=== PATIENT | female | born 1965 | race Caucasian/White ===

== ENCOUNTER 2021-09-04 14:09 | Emergency (ER) | payer SELFPAY ==
[~2021-09-04] VITALS: Ht 152.4 cm; Wt 61.2 kg
[2021-09-04 14:15] VITALS: BP 182/98
[2021-09-04] MEDS ORDERED: DICYCLOMINE HCL LIQUID 20 MG, ALUMINUM HYD/MAG/SIMETHICONE 30 ML, LIDOCAINE VISCOUS 2% ... PO ONE ×3 (14:55)
[2021-09-04] MEDS ORDERED: ONDANSETRON 4 MG TAB PO ONE (14:55)
[2021-09-04] MEDS ORDERED: cefTRIAXone 1,000 MG in DEXT 5% MINI-BAG PLUS 50 ML IV ONE (15:05)
[2021-09-04] MEDS ORDERED: NACL 0.9% 1,000 ML IV SCH (15:05)
[2021-09-04] MEDS ORDERED: ALUMINUM HYD/MAG/SIMETHICONE 30 ML UDC ONE (15:06)
[2021-09-04] MEDS ORDERED: DICYCLOMINE HCL LIQUID 10 MG/5 ML UDC ONE (15:07)
--- NOTE | 2021-09-04 15:12 | NUR ---
55/F PRESENTS TO ED WITH C/O EPIGASTRIC PAIN, NAUSEA AND VOMITING X3 DAYS. PATIENT REPORTS TAKING MYLANTA WITH MILD IMPROVEMENT, DENIES COUGH, FEVER, SOB OR URINARY SYMPTOMS.
[2021-09-04] MEDS ORDERED: IBUP-2213 PO (15:58)
[2021-09-04] MEDS ORDERED: OMEP40EC23 PO (15:58)
[2021-09-04] MEDS ORDERED: ONDA8TAB87 PO (15:58)
[2021-09-04 16:10] VITALS: BP 182/98
--- NOTE | 2021-09-04 16:10 | NUR ---
Patient discharged with v/s stable. Written and verbal after care instructions ABOUT NAUSEA AND VOMITING, ABDOMINAL PAIN given and explained. Patient alert, oriented and verbalized understanding of instructions. Ambulatory with steady gait. All questions addressed prior to discharge. ID band removed. Patient advised to follow up with PMD. Rx of IBUPROFEN, PRILOSEC AND ZOFRAN given. Patient educated on indication of medication including possible reaction and side effects. Opportunity to ask questions provided and answered.
== END 2021-09-04 16:10 | disposition home or self-care (01) ==
LOC: MED 14:09
DX: R10.13 Epigastric pain (principal); R11.2 Nausea with vomiting, unspecified; I10 Essential (primary) hypertension; Z90.49 Acquired absence of other specified parts of digestive tract; Z98.890 Other specified postprocedural states
CPT/HCPCS: 99283; Q0162